=== PATIENT | male | born 1945 | race Caucasian/White ===

== ENCOUNTER 2016-10-23 09:47 | Observation (INO) | payer MEDICARE, OTHER ==
[2016-10-23 10:46] LABS: ABSOLUTE NEUTROPHIL COUNT 6.1 K/mm3 (1.8-7.7); BASO # 0.1 K/mm3 (0.0-0.2); BASO % 0.8 % (0.2-1.0); EOS # 0.1 (0.0-0.5); EOS % 1.1 % (0.9-2.9); HEMATOCRIT 32.3 % (32.0-52.0); HEMOGLOBIN 10.6 gm/l (14.0-18.0); IMM NEUT% 0.2 % (0-1); LYMPH # 2.3 (1.0-4.8); LYMPH % 24.4 % (15-45); MEAN CELL VOLUME 98.5 fl (80.0-94.0); MEAN CORPUSCULAR HEMOGLOBIN 32.3 pg (27.0-31.0); MEAN CORPUSCULAR HGB CONC 32.8 g/dl (33.0-37.0); MEAN PLATELET VOLUME 10.4 fl (7.4-10.4); MONO # 0.7 (0.0-0.8); NEUT % 66.5 % (43-75); PLATELET COUNT 260 K/mm3 (130-400); RED CELL DISTRIBUTION WIDTH 12.4 % (11.5-14.5)
[2016-10-23 10:55] LABS: ALB/GLOB RATIO 1.8 (>1.0); ALBUMIN 4.1 gm/dL (3.5-5.7); CALCIUM 9.3 mg/dL (8.6-10.3); MAGNESIUM 1.9 mg/dL (1.9-2.7)
[2016-10-23 11:15] LABS: TROPONIN I < 0.01 ng/ml (0.0-0.06)
[2016-10-23 11:19] LABS: CKMB ISOENZYME 4.6 ng/ml (0.6-6.3)
[2016-10-23 13:26] VITALS: BMI 32.5
[2016-10-23] MEDS ORDERED: SODIUM CHLORIDE 0.9% 100 ML IV PRN (15:07)
[2016-10-23] MEDS ORDERED: MENTHOL/CETYLPYRD 1 EACH LOZENGE PO PRN (15:07)
[2016-10-23] MEDS ORDERED: BLISTEX LIPSTICK 1 EACH TP PRN (15:07)
[2016-10-23] MEDS ORDERED: SODIUM CHLORIDE 0.9% 500 ML IV SCH (15:15)
[2016-10-23] MEDS ORDERED: PANTOPRAZOLE SODIUM 40 MG VIAL IV SCH (15:30)
[2016-10-23] MEDS ORDERED: PUMP TUBING ONE (15:47)
[2016-10-23] MEDS: D5 1/2NS with 20 mEq KCL 1,000 ML IV SCH (16:00)
--- NOTE | 2016-10-23 16:00 | HP ---
CHAU CHAPIN DATE OF ADMISSION: October 23, 2016 CHIEF COMPLAINT: Gastrointestinal bleed. HISTORY OF PRESENT ILLNESS: The patient is a 71-year-old male who noted some blood in his stools starting on Monday. It continued through Monday and Monday. He had had a little bit of discomfort in the left lower quadrant but this has not been severe. He notes some lightheadedness and dizziness with activity which is a marked change from just a couple of days ago. He reports having at least four more large bloody stools which tend to be dark and his mentions that there is some odor to them also. He had a colonoscopy done at least four years ago in [place] that did not have a significant abnormality. He has had a little bit of right-sided chest pain, has been a little bit short of breath, and his noted that he had been somewhat pale at times just recently. PAST MEDICAL HISTORY: Is remarkable for: 1. Allergic rhinitis. 2. Hypertension. 3. Hypogonadism. 4. Low back pain. 5. Obesity. 6. Vitamin D. 7. reports she suspects he has sleep apnea as well. PAST SURGICAL HISTORY: 1. He had a colonoscopy at least four years ago. 2. Inguinal hernia repair. 3. Umbilical hernia repair. ALLERGIES: NO KNOWN DRUG ALLERGIES. CURRENT MEDICATIONS: 1. Aspirin 81 mg daily. 2. Fish oil 4000 mg daily. 3. Lisinopril 20 mg daily. 4. Simvastatin 40 mg daily. 5. He denies any regular use of antiinflammatories. SOCIAL HISTORY: He is for 20 years. 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 He likes to volunteer at his methodist at [facility] [place]. He has five kids. He smoked a pipe in the past but not now. He has one drink most nights of wine. Hobbies include art and writing. FAMILY HISTORY: Father was 76 and of a heart attack and had been a [employer] and so deliberately had not sought out medical care. Mom of Alzheimer's at 68. REVIEW OF SYSTEMS: Eyes, ears nose and throat have been okay. Heart, okay. Lungs, okay, except for being short of breath just recently. Normally he will walk for half an hour on the treadmill without any difficulty and has not had any changes until these stools happened. Stomach does not hurt. He had a little bit of lower abdominal discomfort but not now. No urinary complaints. No arm complaints. No leg complaints. Skin has been okay except for some scaly spots on his arms. No history of strokes. He would like resuscitation. PHYSICAL EXAMINATION: GENERAL: Nontoxic male, mildly but appropriately anxious. VITAL SIGNS: Temperature is 97.9, pulse 76, blood pressure 136/75, respirations 18, 99% saturation on room air. HEENT: Head is normocephalic, atraumatic. Eyes are unremarkable. Ears are normal. Nose is normal. Mouth is unremarkable. Dentition is good. NECK: Is supple, no jugular venous distention, no masses. CHEST: Lungs are clear to auscultation bilaterally. CARDIOVASCULAR: Occasional irregularity but no murmur noted. ABDOMEN: Soft, bowel sounds are quiet. No rebound, no guarding, nontender, nondistended. Some tenderness down in the left inguinal region but no hernia is evident at this time. GENITOURINARY: Normal male. RECTAL: Reported as heme positive stool grossly. EXTREMITIES: Unremarkable. NEUROLOGIC: Patient's cranial nerves are intact. Some tremor noted at rest which is fairly fine tremor and appears to be body wide. Alert, answers appropriately. No cranial nerve deficits noted. No focal deficits noted. LABORATORY STUDIES: White count 9.2, hemoglobin 10.6, platelets 260. His MCV is 98.5. Sodium 138, potassium 4.3, chloride 103, CO2 28, BUN 34, creatinine 0.9, glucose 116, calcium is 9.3, magnesium 1.9. Liver function tests are normal. Troponin less than 0.01. Lipase is 25, CK-MB is 4.6, albumin 4.1, globulin 2.3. IMAGING: None done so far. ASSESSMENT AND PLAN: 1. Gastrointestinal bleed. Patient does not have any upper symptoms with no vomiting but does have an elevated BUN/creatinine ratio and family reports darker stools which might suggest an upper cause. Anticipate use of Protonix IV and referral to gastroenterology for consideration of upper endoscopy and lower endoscopy if etiology not determined. His normal scope from four years ago would argue against there being a significant lower gastrointestinal cause. 2. Acute blood loss anemia. We will be rechecking hemoglobin and hematocrit tonight and in the morning and consider transfusion if substantially worsened or much more symptomatic. 3. Lightheadedness attributed to anemia. Plan to be on telemetry. 4. Venous thrombosis prophylaxis. Anticipate mechanical measures due to gastrointestinal bleed. 5. FULL CODE status. 6. Fine tremor. Patient will follow up with primary care as needed. 7. Suspected sleep apnea. Appreciate primary care doing followup regarding a sleep evaluation if desired. Cc: Narendra Osei D.O.
[2016-10-23] MEDS: SODIUM,POTASSIUM,&MAG SULFATES 354 ML (2 DOSE KIT) PO SCH (17:14)
[2016-10-23 17:16] LABS: PROTHROMBIN TIME 10.5 SECONDS (9.3-11.4)
[2016-10-23 18:05] LABS: HEMOGLOBIN 10.3 gm/l (14.0-18.0); MEAN CELL VOLUME 97.5 fl (80.0-94.0); MEAN CORPUSCULAR HEMOGLOBIN 32.4 pg (27.0-31.0); MEAN CORPUSCULAR HGB CONC 33.2 g/dl (33.0-37.0); RED CELL DISTRIBUTION WIDTH 12.3 % (11.5-14.5)
[2016-10-24] MEDS: SODIUM,POTASSIUM,&MAG SULFATES 354 ML (2 DOSE KIT) PO SCH (03:52)
[2016-10-24] MEDS ORDERED: LACTATED RINGERS 1,000 ML IV SCH (05:00)
[2016-10-24 06:02] LABS: HEMATOCRIT 30.8 % (32.0-52.0); HEMOGLOBIN 10.1 gm/l (14.0-18.0); MEAN CELL VOLUME 98.4 fl (80.0-94.0); MEAN CORPUSCULAR HEMOGLOBIN 32.3 pg (27.0-31.0); MEAN CORPUSCULAR HGB CONC 32.8 g/dl (33.0-37.0); RED CELL DISTRIBUTION WIDTH 12.5 % (11.5-14.5)
[2016-10-24] MEDS: D5 1/2NS with 20 mEq KCL 1,000 ML IV SCH (08:28)
[2016-10-24] MEDS ORDERED: LACTATED RINGERS 1,000 ML ONE (13:39)
[2016-10-24] MEDS ORDERED: PROPOFOL 40 ML IV ONE (13:42)
[2016-10-24] MEDS ORDERED: FENTANYL 100 MCG/2 ML VIAL ONE (13:42)
[2016-10-24 15:50] VITALS: BP 158/77
[2016-10-24] MEDS ORDERED: SUCRALFATE 1 G TABLET PO SCH (16:00)
--- NOTE | 2016-10-24 17:25 | DS ---
CHAU CHAPIN [id number] DATE OF ADMISSION: October 23, 2016 DATE OF DISCHARGE: October 24, 2016 DISCHARGE DIAGNOSES: 1. Melena with presumed upper gastrointestinal bleeding. 2. Esophagitis. 3. Gastritis. 4. Hiatal hernia. OTHER DIAGNOSES: Include: 1. Acute blood loss anemia. 2. Chronic essential hypertension. 3. Chronic low back pain. 4. Hypogonadism. 5. Allergic rhinitis. CONSULTATIONS: Included gastroenterology consultation with Dr. Jean Gallo. PROCEDURES: Included: 1. Esophagogastroduodenoscopy with biopsy. 2. Colonoscopy. SUMMARY OF ADMISSION AND HOSPITAL COURSE: The patient is a 71-year-old male who presented with concerns about blood in his stools. His stools apparently looked more dark and tarry than bright red blood, but he also felt like he saw some blood. He had at least four bowel movements over the weekend. When he presented, he was hemodynamically stable. His hemoglobin was 10.6, and hemoccult studies performed in the emergency department were reportedly positive. He was placed under observation on the medical/surgical unit on Protonix and monitored with serial hemoglobins. His hemoglobin remained relatively stable around 10.1. He had no evidence of any further blood loss. He underwent upper and lower endoscopy and had the findings as mentioned above. He was without active bleeding and was felt to be medically stable for discharge. PHYSICAL EXAM: VITAL SIGNS: His discharge vital signs showed a temperature of 97.6, pulse 73, blood pressure is 124/70, respirations 16, oxygen saturation 97% on room air. Body mass index 32.6. Weight is 103 kilograms. GENERAL: This is a slightly obese male in no acute distress. HEENT: Shows moist, pink oral mucosa. NECK: Supple without lymphadenopathy or thyromegaly. LUNGS: Are clear to auscultation bilaterally. CARDIOVASCULAR: Exam reveals a regular rate and rhythm without a murmur. ABDOMEN: Is soft, nontender, nondistended with positive bowel sounds. EXTREMITIES: Show no peripheral edema. LABORATORY STUDIES: On discharge his Helicobacter pylori screen is still pending. His hemoglobin is 10.1, hematocrit 30.8, platelet count of 263,000. DISPOSITION: Home. DISCHARGE CONDITION: Good. DISCHARGE DIET: Regular diet. ALLERGIES: NO KNOWN DRUG ALLERGIES. CODE STATUS: FULL CODE. DISCHARGE MEDICATIONS: 1. Prilosec 20 mg twice daily for 14 days followed by 20 mg daily. 2. Carafate 1 g before meals and at bedtime for ten days. 3. He will resume lisinopril 20 mg daily. 4. Simvastatin 40 mg daily. 5. Fish oil 4000 mg daily. 6. He is instructed to discontinue aspirin therapy at this time. FOLLOWUP: He will follow up with Dr. Narendra Osei on November 08, 2016 at 3:00 p.m. Cc: Narendra Osei D.O.
[2016-10-24 18:44] LABS: HELICOBACTER PYLORII DETECTION NEGATIVE (NEGATIVE)
--- NOTE | 2016-10-26 10:09 | SURGPATH ---
[facility] [address] [place] [id number] Patient Name: CHAU CHAPIN MR#: [id number] : 1945 Gender: M Specimen #: [id number] Collected: 10/24/2016 Received: 10/25/2016 Reported: 10/26/2016 Submitting Phys: TANNA ATKINS Copy To Phys: SLIM [facility] JOSE BANG III Clinical History / Pre-Operative Diagnosis: GI BLEEDING WITH BLOOD LOSS ANEMIA; RULE OUT GASTRITIS Specimen Source / Surgical Procedure Performed: #1-ANTRAL BIOPSY; #2-PROXIMAL ASCENDING COLON POLYP; #3-SIGMOID POLYP AT 20 CM Interpretation: 1. ANTRUM, BIOPSY: - NO PATHOLOGIC ABNORMALITY 2. PROXIMAL ASCENDING COLON POLYP, BIOPSY: - TUBULAR ADENOMA 3. SIGMOID POLYP, BIOPSY: - HYPERPLASTIC POLYP Electronically Signed Out Aaron Shelton M.D. Gross Description: #1 The specimen is received in a formalin filled container labeled with the patient's name and "antral biopsy". Two covarrubias biopsies are 0.2 and 0.3 cm. Totally embedded in cassette #1. #2 The specimen is received in a formalin filled container labeled with the patient's name and "proximal ascending colon polyp". Two black-covarrubias biopsies are 0.3 and 0.4 cm. Totally embedded in cassette #2. #3 The specimen is received in a formalin filled container labeled with the patient's name and "sigmoid polyp at 20 cm". A single covarrubias biopsy is 0.3 cm. Totally embedded in cassette #3. Fitz Woodard PAlexia Microscopic Description: Microscopic performed. 1: [id number] 2: [id number] 3: [id number] D12.2
== END 2016-10-24 15:55 | disposition home or self-care (01) ==
LOC: ED 09:47 → MS 12:35
PROVIDERS: ADMIT Family Medicine; ATTEND Family Medicine
PROC: 0DB68ZX Excision of Stomach, Via Natural or Artificial Opening Endoscopic, Diagnostic (ICD-10-PCS; principal; 2016-10-24)
PROC: 0DBK8ZX Excision of Ascending Colon, Via Natural or Artificial Opening Endoscopic, Diagnostic (ICD-10-PCS; 2016-10-24)
PROC: 0DBN8ZX Excision of Sigmoid Colon, Via Natural or Artificial Opening Endoscopic, Diagnostic (ICD-10-PCS; 2016-10-24)
DX: K92.2 Gastrointestinal hemorrhage, unspecified (principal); K20.9 Esophagitis, unspecified; K29.71 Gastritis, unspecified, with bleeding; K44.9 Diaphragmatic hernia without obstruction or gangrene; D62 Acute posthemorrhagic anemia; I10 Essential (primary) hypertension; G89.29 Other chronic pain; M54.9 Dorsalgia, unspecified; E29.1 Testicular hypofunction; J30.9 Allergic rhinitis, unspecified; E66.9 Obesity, unspecified
CPT/HCPCS: 83690; 85027 ×2; 85025; 82550; 82553; 80053; 87081; 83735; 85610; 84484; 36415; 99284; 93005; 99285; 43239; 45380; J3010; C9113; J7120 ×2; J7040